=== PATIENT | male | born 1950 | race Caucasian/White ===

== ENCOUNTER → 2020-10-02 | Outpatient (CLI) | payer MEDICARE ==
--- NOTE | 2020-10-02 12:24 | US ---
EXAMINATION TYPE: US duplex aorta DATE OF EXAM: 10/02/2020 COMPARISON: NONE CLINICAL HISTORY: 70-year-old male Z13.6 Encounter for screening for cardiovascular. TECHNIQUE: Multiple sonographic images of the abdominal aorta are obtained. FINDINGS: EXAM MEASUREMENTS: Abdominal Aorta: Proximal: 2.1 x 2.5cm Mid: 1.9 x 1.8cm Distal: 1.8 x 1.7cm Right Iliac: 0.7 x 0.8cm Left Iliac: 0.8 x 0.8cm Scattered mild atherosclerotic calcifications throughout. IMPRESSION: The proximal abdominal aorta is borderline ectatic at 2.5 cm. Otherwise, no evidence for AAA.
== END ==
LOC: RADUSWWP 09:36
PROVIDERS: ATTEND Family Medicine
DX: Z13.6 Encounter for screening for cardiovascular disorders (principal); I77.811 Abdominal aortic ectasia
CPT/HCPCS: 93979

== ENCOUNTER → 2022-04-30 | Outpatient (CLI) | payer MEDICARE ==
--- NOTE | 2022-04-30 12:06 | XR ---
EXAMINATION TYPE: XR shoulder complete RT DATE OF EXAM: 04/30/2022 CLINICAL HISTORY: pain TECHNIQUE: Three views of the right shoulder are obtained. COMPARISON: None FINDINGS: There is no acute fracture/dislocation evident. The acromioclavicular and glenohumeral vivek int spaces appear within normal limits. The visualized ribs are intact and unremarkable. IMPRESSION: 1. There is no acute fracture or dislocation. ICD 10 NO FRACTURE, INITIAL EVALUATION
== END | disposition home or self-care (01) ==
LOC: RADXRYALE 11:06
PROVIDERS: ATTEND Physician Assistant
DX: M25.511 Pain in right shoulder (principal)